=== PATIENT | female | born 1980 | race Caucasian/White ===

== ENCOUNTER 2016-08-08 11:35 | Emergency (ER) | payer OTHER ==
[~2016-08-08] VITALS: Ht 160 cm; Wt 94.5 kg
[~2016-08-08 11:35] MED LIST: ACTOS; ACTOS15 MG PO; ATENOLOL; ATENOLOL50 M1 PO; ATENOLOL50 MG PO; Ativan PO; BACLOFEN; BACLOFEN10 MG PO; BUTALB-APAP-CA1 EACH PO; CHLORZOXAZONE500 MG PO; COUMADIN,JANTOVE5 MG PO; COUMADIN5 MG PO; Coumadin dosing per PO; DILAUDID2 MG PO; ESGIC 50-325-41 EACH PO; FORTAMET1000 MG PO; HUMALOG MI100 UNIT/3 SC; HUMALOG100 UNIT/1 SC; HUMALOG100 UNIT/1 SQ; HUMALOG100 UNIT/2 SC; HUMULIN 70100 UNIT/1 SQ; HUMULIN 70100 UNIT/2 SQ; HYDROCODON-ACE1 EAC7 PO; LANTUS 3 M100 UNITS/ SC; LEVAQUIN500 MG PO; LOVENOX100 MG/1 M SC; LYRICA; LYRICA150 MG PO; LYRICA300 MG PO; MS CONTIN,ORAMO15 M1 PO; MS CONTIN,ORAMO15 M2 PO; MS CONTIN15 MG PO; NAPROSYN500 MG PO; NICOTINE PATCH1 EAC2 TD; NORCO 5/3251 TABLET PO; NORTRIPTYLINE PO; OXYCODON-ACETA1 EACH PO; PERCOCET 10/1 TABLET PO; PERCOCET 5/31 TABLET PO; PRAVASTATIN; PRAVASTATIN SOD40 MG PO; PROAIR HFA8.5 GM IH; PROMETHAZINE HC25 M1 PO; Phenergan PO; RANITIDINE; RANITIDINE HCL150 MG PO; SIMVASTATIN5 MG PO; SULFAMETHOXAZO1 EAC4 PO; TENORMIN50 MG PO; TRANDOLAPRIL1 MG PO; TYLENOL WITH C1 EACH PO; ULTRAM50 MG PO; VIT D; Vitamin D PO; Vitamin D, Drisdol PO; WARFARIN SODIUM5 MG PO; [UNRECOGNIZED DRUG - OTHER]
[2016-08-08 13:32] LABS: ADD MIUA? YES; BILIRUBIN NEGATIVE; BLOOD SMALL; COLOR YELLOW ((YELLOW)); GLUCOSE (STRIP) >=500; INTERNAL CONTROL VALID? YES; KETONES NEGATIVE; LEUKOCYTES MODERATE; NITRITE NEGATIVE; PROTEIN (STRIP) 30; SPECIFIC GRAVITY 1.033 (1.000-1.030); UROBILINOGEN 0.2 MG/DL (0.2-1.0)
[2016-08-08] MEDS ORDERED: PYRIDIUM200 MG PO ×2 (14:10→14:25)
[2016-08-08] MEDS ORDERED: KEFLEX500 MG PO (14:10)
[2016-08-08 14:11] LABS: BACTERIA 2+ /HPF; EPITHELIAL CELLS RARE /HPF; MUCUS TRACE /LPF; RED BLOOD CELLS NONE SEEN /HPF (0-5); UCUL ADDED? YES
[2016-08-08] MEDS ORDERED: ZOFRAN ODT4 MG PO ×2 (14:12→14:25)
[2016-08-08 14:18] VITALS: BP 154/97
[2016-08-08] MEDS ORDERED: PERCOCET 10/1 TABLET PO (14:28)
== END 2016-08-08 14:32 | disposition home or self-care (01) ==
LOC: EME 11:35
DX: N39.0 Urinary tract infection, site not specified (principal); E11.65 Type 2 diabetes mellitus with hyperglycemia; Z79.4 Long term (current) use of insulin; R31.0 Gross hematuria; R51 Headache; J45.909 Unspecified asthma, uncomplicated; I10 Essential (primary) hypertension; G89.29 Other chronic pain; Z86.711 Personal history of pulmonary embolism; F17.200 Nicotine dependence, unspecified, uncomplicated
CPT/HCPCS: 81003; 84703; 87077; 87086; 87186; 99281; 99284